=== PATIENT | male | born 1980 | race Caucasian/White ===

== ENCOUNTER 2025-03-03 22:31 | Emergency (ER) | payer OTHER, SELFPAY ==
[2025-03-03 22:34] VITALS: BP 117/82; PULSE 82; RESP 18; TEMP 36.6; O2SAT 97; BMI 31.0
--- OUTSIDE RECORDS SUMMARY | 2025-03-03 22:40 | XMS_ITS | Clinical Summary ---
Author Organization [facility] Address [address] [place] [address] Phone Care Team Providers Care Continuity Director Name Role Phone Unavailable Primary Care Provider Unavailabl e Social History Tobacco Use Types Packs/Day Years Used Date Smoking Tobacco: Never Assessed Sex and Gender Information Value Date Recorded Sex Assigned at Not on file Legal Sex Male 9:04 AM EST Gender Identity Not on file Sexual Orientation Not on file Plan of Treatment Health Maintenance Due Date Last Done Comments HIV Screening 1982 Lipid Panel 1982 Yearly Adult Physical 1982 MMR Vaccines (1 of 1 - Stand magi series) 09/24/1983 Hepatitis C Screening 2000 Hepatitis B Vaccines (1 of 3 - 19+ 3-dose series) 2001 DTaP/Tdap/Td Vaccines (1 - Tdap) 2004 HPV Vaccines (1 - 3-dose sta ndard series) 2009 Influenza Vaccine (#1) 2024 COVID-19 Vaccine (1 - 2024-2 6 season) 2024 Zoster Vaccines (1 of 2) 2032 HIB Vaccines Aged Out No longer eligi ble based on patient's age to complete this topic Hepatitis A Vaccines Aged Out No long er eligible based on patient's age to complete this topic IPV Vaccines Aged Out No longer eligi ble based on patient's age to complete this topic Meningococcal Vaccine Aged Out No donna john eligible based on patient's age to complete this topic Pneumococcal Vaccine: Pediat rics and At-Risk Adult Patients Aged Out No longer terry gible based on patient's age to complete this topic Rotavirus Vaccines Aged Out No longer eligible based on patient's age to complete this topic Insurance [employer] [facility] MED [employer] Member Subscriber Plan / Payer (Ef fective for All Dates) Name:GrandinNicole knightgue Member ID:Not on file Relation to Subscriber:Self Name:Mika Riggs Subscriber ID:Not on file Payer ID:Not on file Group ID:Not on file Type:Not on file Address: [address] [place] [phone] [facility]ICAL [facility] MED Member Subscriber Plan / Payer (Ef fective 2021-) Name:Maria Eugenia Riggse Relation to Subscriber:Self Name:Maria Eugenia Riggse Payer ID:Not on file Group ID:Not on file Type:Not on file Address: [address] [place] [phone]
--- OUTSIDE RECORDS SUMMARY | 2025-03-03 22:40 | XMS_ITS | Encounter Summary ---
Author Organization [facility] Address [address] [place] [address] Phone Care Team Providers Care Algorithm Developer Name Role Phone Unavailable Primary Care Provider Unavailabl e Encounter Details Date Type Department Care Team (Late st Contact Info) Description 02/23/2024 Lab Requisition [facility] [address] [place] [id number] Anthony Lee MD [address] [place], [place] [id number] Montano's esophagus without dysplasia Social History Tobacco Use Types Packs/Day Years Used Date Smoking Tobacco: Never Assessed Sex and Gender Information Value Date Recorded Sex Assigned at Not on file Legal Sex Male 9:04 AM EST Gender Identity Not on file Sexual Orientation Not on file documented as of this encounter Plan of Treatment Not on file documented as of this encounter Procedures Procedure Name Priority Date/Time Associated Diagnosis Comments SURGICAL PATHOLOGY EXAM Routine 02/22/2024 8:00 AM EST Montano's esophagus without dysplasia documented in this encounter Results * Surgical Pathology Exam (02/22/2024 8:00 AM EST) Case Report Surgical Pathology Case: [id number] Authorizing Provider: Anthony Lee MD Collected: 02/22/2024 0800 Ordering Location: [facility] Received: 02/23/2024 1431 Center Pathologist: India Li MD Specimen: ESOPHAGUS DISTAL BIOPSY 02/29/2024 3:52 PM EST [facility] FINAL DIAGNOSIS A. Esophagus, distal, biopsy: Hyperplastic esophageal squamous mucosa and inflamed cardiac-type mucosa. No evidence of intestinal metaplasia. 02/29/2024 3:52 PM EST [facility] at 1552 EST By the signature on this report, the individual or group listed as making the Final Interpretation /Diagnosis certifies that they have reviewed this case. 02/29/2024 3:52 PM EST [facility] Clinical History MONTANO'S ESOPHAGUS 02/29/2024 3:52 PM EST [facility] Gross Description Received in formalin, labeled with the patient's name and hospital number, are multiple fragments of carlson, soft tissue aggregating to 1.5 x 0.3 x 0.2 cm. The specimen is submitted in toto in one cassette. SHONNA 02/29/2024 3:52 PM EST [facility] Tissue (ESOPHAGUS DISTAL BIOPSY) 02/22/2024 8:00 AM EST 02/23/2024 2:31 PM EST us Anthony Lee MD LAB PATHOLOGY ORDERABLES Final R esult [facility] [address] [place] [address] documented in this encounter Visit Diagnoses Diagnosis Montano's esophagus without dysplasia documented in this encounter
--- OUTSIDE RECORDS SUMMARY | 2025-03-03 22:41 | XMS_ITS | Clinical Summary ---
Author Organization [facility] Address [address] [place] [address] Care Team Providers Care Forest Economics Professor Name Role Phone Nigel Braxton Lana BATES Primary Care Provider [phone] Allergies No known active allergies Medications ergocalciferol (ERGOCALCIFEROL) 1.25 MG (94317 UT) capsule Take 50,000 Units by mouth once a week Active fenofibrate (TRIGLIDE) 160 MG tablet Take 160 mg by mouth daily Active [place]-3 Fatty Acids (FISH OIL) 1000 MG CAPS 05/02/2015 Active Family History Medical History Relation Name Comments Cancer Maternal Grandfather Diabetes Maternal Grandfather Cancer Maternal Grandmother Diabetes Maternal Grandmother Cancer Mother Diabetes Paternal Grandfather Diabetes Paternal Grandmother Relation Name Status Comments Maternal Grandfather Maternal Grandmother Mother Paternal Grandfather Paternal Grandmother Social History Tobacco Use Types Packs/Day Years Used Date Smoking Tobacco: Former Cigarettes Smokeless Tobacco: Never Sex and Gender Information Value Date Recorded Sex Assigned at Not on file Legal Sex Male 7:55 PM EDT Gender Identity Not on file Sexual Orientation Not on file Last Filed Vital Signs Vital Sign Reading Time Taken Comments Blood Pressure - - Pulse - - Temperature 36.4 C (97.5 F) 09/09/2021 8:40 AM EDT Respiratory Rate - - Oxygen Saturation - - Inhaled Oxygen Concentration - - Weight - - Height - - Body Mass Index - - Plan of Treatment Not on [place] [address] [employer] Care Teams Forest Economics Professor Relationship Specialty Start Date End Date Nigel Braxton DO [address] [place] [address] PCP - General Family Medicine 06/03/21
[2025-03-04] MEDS: tetanus-dipt-pertussis 0.5 mL SDV IM (01:40)
--- NOTE | 2025-03-04 01:53 | W.ED.WOUNDLC ---
HPI - Wound/Laceration General: Chief Complaint: Wound/Laceration Stated Complaint: right finger lac Time Seen by Provider: 03/04/25 01:23 History of Present Illness: Patient presents with a laceration to the right third finger pad sustained from a knife while cleaning a deer. The patient reports that the injury occurred earlier today. After the injury, the patient attempted to clean the wound and wrapped it for approximately two hours before having dinner. The patient checked the wound before bed and noted it was still doing pretty good but continued to bleed. The patient presents for evaluation and treatment of the wound. Related Data Allergies Allergy/AdvReac Type Severity Reaction Status Date / Time No Known Allergies Allergy Verified 03/03/25 22:37 Physical Exam Const: COMMON NORMALS: no acute distress and healthy appearing GENERAL APPEARANCE: cooperative Chest: CHEST: Yes Symmetrical chest wall rise Resp: COMMON NORMALS: normal respiratory effort and No use of accessory muscles Cardio: COMMON NORMALS: regular rate and regular rhythm RATE: regular rate RHYTHM: regular rhythm Extremity: NARRATIVE EXTREMITY EXAM: 0.5cm superficial laceration to the distal finger pad of 3rd right finger. bleeding controlled. Procedures Laceration Laceration 1: Site: hand (3rd finger) Side (If applicable): right Size (cm): 0.5 Description: linear Depth: simple, single layer Pre-repair: wound explored, irrigated extensively and deep structures intact Skin layer closed with: other (dermabond) Course Vital Signs: Vital signs: Vital Signs Temperature 97.8 F 03/03/25 22:34 Pulse Rate 82 03/03/25 22:34 Respiratory Rate 18 03/03/25 22:34 Blood Pressure 117/82 03/03/25 22:34 Pulse Oximetry 97 03/03/25 22:34 Oxygen Delivery Me thod Room Air 03/03/25 22:34 MDM - Wound/Laceration Medical Decision Making small laceration with controlled bleeding at this point to 3rd finger pad distally. treated with dermabond. no continued bleeding. tetanus updated with Tdap. No radiology studies performed this visit Discharge Plan Discharge Patient Disposition: Home Clinical Impression: Finger laceration Condition: Stable Discharge Orders: Discharge ED (Routine); Ordered 03/04/25 Ordered By: Jose Ng Patient Instructions: Finger Laceration (ED), Opioid Safety, Pain Management, Patient Portal & Gerald Instructions Activity Restrictions/Additional Instructions: Do not soak. You may clean with soap and running water. Do not scrub. Protect with gloves for any wet work or dirty work. Return for any problems. Print Language: [place] Islander Coding Level of Care Code ED Certified Court/Medical Interpreter for Josef Santos
== END 2025-03-04 02:16 | disposition home or self-care (01) ==
PROVIDERS: Emergency Provider Emergency Medicine
DX: S61.212A Laceration without foreign body of right middle finger without damage to nail, initial encounter (principal); W26.0XXA Contact with knife, initial encounter
CPT/HCPCS: 12001; 90471; 90715; 99283